=== PATIENT | female | born 1960 | race Caucasian/White ===

== ENCOUNTER 2018-06-22 14:51 | Emergency (ER) | payer BC ==
[~2018-06-22] VITALS: Ht 167.6 cm; Wt 97.7 kg
[2018-06-22] MEDS ORDERED: GOOD SENSE OMEP20 MG (15:03)
[2018-06-22] MEDS ORDERED: WELLBUTRIN SR150 M3 PO (15:03)
[2018-06-22] MEDS ORDERED: LEVO-T25 MCG (15:04)
[2018-06-22] MEDS ORDERED: SYNTHROID25 MCG (15:04)
[2018-06-22] MEDS ORDERED: ONDANSETRON ODT8 MG PO (17:02)
[2018-06-22] MEDS ORDERED: VALIUM 2MG T2 MG/TAB PO (17:10)
[2018-06-22] MEDS ORDERED: PHENERGAN50 M2 RC (17:10)
[2018-06-22 17:19] VITALS: BP 107/63
== END 2018-06-22 17:23 | disposition home or self-care (01) ==
LOC: ED 14:51
DX: R42 Dizziness and giddiness (principal); K21.9 Gastro-esophageal reflux disease without esophagitis; E07.9 Disorder of thyroid, unspecified; H40.9 Unspecified glaucoma; Z90.710 Acquired absence of both cervix and uterus; Z87.891 Personal history of nicotine dependence
CPT/HCPCS: J2405; J2550; J7030